=== PATIENT | male | born 1995 | race Caucasian/White ===

== ENCOUNTER 2017-08-02 06:44 | Emergency (ER) | payer SELFPAY ==
[2017-08-02] MEDS ORDERED: HYDROmorphone HCL/PF 1 MG/ML DISP.SYRIN IVP ONE ×2 (06:47→07:31)
[2017-08-02] MEDS ORDERED: HYDROmorphone HCL/PF 1 MG/ML DISP.SYRIN ONE (06:48)
[2017-08-02] MEDS ORDERED: LORazepam 2 MG/ML VIAL IVP ONE (06:48)
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
[2017-08-02 06:59] LABS: BASOPHILS % 0.5 (0.0-1.5); EOSINOPHILS % 2.4 % (0.0-6.8); MEAN CORPUSCULAR HEMOGLOBIN 30.9 pg (28.0-34.0); MEAN CORPUSCULAR VOLUME 93.6 fl (80.0-100.0); MONOCYTES % 4.7 % (0.0-11.0); NEUTROPHILS # 5.8 # k/uL (1.4-7.7)
[2017-08-02 07:17] LABS: eGFR (African) > 60; eGFR (Non-African) > 60
[2017-08-02 08:27] LABS: APPEARANCE,URINE Clear (CLEAR); COLOR,URINE Yellow (YELLOW); OCCULT BLOOD,URINE Negative (NEGATIVE); PH URINE 5.5 (5.0 - 8.0); UROBILINOGEN URINE 0.2 Eu (0.2-1.0)
[2017-08-02 08:38] LABS: AMPHETAMINE NEGATIVE ng/mL (<1000); BARBITURATES NEGATIVE ng/mL (<300); CANNABINOIDS NON NEGATIVE ng/mL (< 50); COCAINE NEGATIVE ng/mL (<300); METHAMPHETAMINE NEGATIVE ng/mL (<1000); METHYLENEDIOXYMETHAMPHETAMINE NEGATIVE ng/mL (<500); OPIATES NEGATIVE ng/mL (<300)
[2017-08-02] MEDS ORDERED: KETOROLAC TROMETHAMINE 30 MG/1ML VIAL IVP ONE (08:44)
[2017-08-02] MEDS ORDERED: KETOROLAC TROMETHAMINE 30 MG/1ML VIAL ONE (08:45)
[2017-08-02 09:00] VITALS: BP 130/68
--- NOTE | 2017-08-02 11:38 | Diagnostic Imaging Report ---
VONDA OLIVER [facility] [address] [address] Report Submission Date: Aug 02, 2017 7:20:21 AM CDT Patient Study Name: OREN JENKINS Date: Aug 02, 2017 7:06:02 AM CDT Modality Type: CR Gender: M Description: UPPER EXTREMITY : 95 Institution: [facility] Physician: VONDA OLIVER HISTORY: 21-year-old male with left wrist pain after fall last night. COMPARISON: None available. TECHNIQUE: 3 views of the left wrist were performed. FINDINGS: There is a transverse fracture of the left distal radius with mild dorsal comminution, shortening, dorsal displacement, and dorsal angulation. There is question of intra-articular extension on the AP view. There is a mildly displaced oblique fracture of the ulna styloid.. IMPRESSION: Fractures of the left distal radius and ulna styloid as detailed above. Electronically signed on Aug 02, 2017 7:20:21 AM CDT by: Tyree PHAM
--- NOTE | 2017-08-02 11:39 | Diagnostic Imaging Report ---
MIGUEL ANGEL DOAN [facility] [address] [facility].[address] [address] Report Submission Date: Aug 02, 2017 8:12:39 AM CDT Patient Study Name: OREN JENKINS Date: Aug 02, 2017 7:54:49 AM CDT Modality Type: CR Gender: M Description: CHEST : 95 Institution: [facility] Physician: MIGUEL ANGEL DOAN Examination: Plain film ribs/chest History: Injury Findings: 4 views of the chest and ribs normal cortical margins. No fracture or dislocation. Normal cardiac silhouette. No focal infiltrate or effusion. Impression: No rib fracture. No parenchymal infiltrate. Electronically signed on Aug 02, 2017 8:12:39 AM CDT by: Grupo PHAM
== END 2017-08-02 08:58 | disposition short-term general hospital (02) ==
LOC: ED 06:44
DX: S52.502A Unspecified fracture of the lower end of left radius, initial encounter for closed fracture (principal); W19.XXXA Unspecified fall, initial encounter; Y93.9 Activity, unspecified; Y99.9 Unspecified external cause status
CPT/HCPCS: 71101; 73110; 80053; 80320; 80377; 81002; 85025; J1170; J1885; J2060; 96374; 96375; 96376; 99284; G0480; G0481; S1016

== ENCOUNTER 2019-08-07 16:23 | Emergency (ER) | payer SELFPAY ==
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
[2019-08-07 17:09] LABS: BASOPHILS % 0.4 % (0.0-1.5); NEUTROPHILS # 7.3 # k/uL (1.4-7.7)
[2019-08-07] MEDS: 0.9 % SODIUM CHLORIDE 1,000 ML IV ONE (17:26)
[2019-08-07 17:32] LABS: eGFR (Non-African) > 60
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
[2019-08-07] MEDS: MORPHINE SULFATE 4 MG/ML VIAL IV ONE ×2 (17:45→17:57)
[2019-08-07] MEDS: MORPHINE SULFATE 4 MG/ML VIAL ONE (17:45)
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
[2019-08-07] MEDS: fentaNYL CITRATE/PF 100 MCG/2 ML INJ. ONE (18:07)
[2019-08-07] MEDS: fentaNYL CITRATE/PF 100 MCG/2 ML INJ. IVP ONE (18:07)
[2019-08-07] MEDS: ORPHENADRINE CITRATE 60 MG/2 ML ML IM ONE (18:35)
[2019-08-07 18:47] LABS: CANNABINOIDS NON NEGATIVE ng/mL (< 50); METHYLENEDIOXYMETHAMPHETAMINE NEGATIVE ng/mL (<500)
[2019-08-07 18:48] LABS: APPEARANCE,URINE CLEAR (CLEAR); COLOR,URINE YELLOW (YELLOW); OCCULT BLOOD,URINE NEGATIVE (NEGATIVE); PH URINE 7.5 (5.0 - 8.0); UROBILINOGEN URINE 0.2 Eu (0.2-1.0)
[2019-08-07 19:02] VITALS: BP 118/80
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
== END 2019-08-07 18:57 | disposition home or self-care (01) ==
LOC: ED 16:23
DX: S00.81XA Abrasion of other part of head, initial encounter (principal); S00.411A Abrasion of right ear, initial encounter; V86.99XA Unspecified occupant of other special all-terrain or other off-road motor vehicle injured in nontraffic accident, initial encounter
CPT/HCPCS: 70450; 70486; 71260; 72125; 74177; 80053; 80320; 80377; 81002; 82550; 85025; 85610; 87491; 87591; 96361; 96372; 96374; 96375; 96376; 99283; 99285; J2270; J2360; J3010; J7030; Q9967; G0480; G0481; S1016